=== PATIENT | male | born 1950 | race Caucasian/White ===

== ENCOUNTER 2021-01-04 08:18 | Outpatient (CLI) | payer MEDICARE, OTHER, SELFPAY | END 2021-01-04 08:19 | disposition home or self-care (01) | LOC: ANHCOVIDVC 08:21 | PROVIDERS: PCP Internal Medicine | DX: Z23 Encounter for immunization (principal) | CPT/HCPCS: 0001A; 91300 ==

== ENCOUNTER 2021-01-25 08:09 | Outpatient (CLI) | payer MEDICARE, OTHER, SELFPAY | END 2021-01-25 08:10 | LOC: ANHCOVIDVC 08:09 | PROVIDERS: PCP Internal Medicine | DX: Z23 Encounter for immunization (principal) | CPT/HCPCS: 0002A; 91300 ==